=== PATIENT | male | born 1945 | race Caucasian/White ===

== ENCOUNTER 2016-07-14 12:14 | Emergency (ER) | payer MEDICARE | END 2016-07-14 13:03 | disposition home or self-care (01) | LOC: ED 12:14 | DX: L03.113 Cellulitis of right upper limb (principal) ==

== ENCOUNTER 2016-07-23 13:40 | Emergency (ER) | payer MEDICARE | END 2016-07-23 15:56 | disposition home or self-care (01) | LOC: ED 13:40 → SUPCPDRO 13:40 → ED 15:56 | DX: S61.401D Unspecified open wound of right hand, subsequent encounter (principal); W55.03XD Scratched by cat, subsequent encounter; I10 Essential (primary) hypertension; E66.9 Obesity, unspecified; J45.909 Unspecified asthma, uncomplicated; J44.9 Chronic obstructive pulmonary disease, unspecified; G47.30 Sleep apnea, unspecified; F32.9 Major depressive disorder, single episode, unspecified; Z87.891 Personal history of nicotine dependence; Z79.899 Other long term (current) drug therapy; Z88.0 Allergy status to penicillin; Z88.2 Allergy status to sulfonamides ==

== ENCOUNTER 2016-08-17 09:10 | Day surgery (SDC) | payer MEDICARE ==
[2016-08-17] MEDS ORDERED: LACTATED RINGERS 1,000 ML ONE (09:25)
[2016-08-17] MEDS ORDERED: IV START KIT ONE (09:26)
[2016-08-17] MEDS ORDERED: CLINDAMYCIN 600 MG PREMIX 50 ML IV PRN (09:30)
[2016-08-17] MEDS ORDERED: CLINDAMYCIN 600 MG PREMIX 50 ML IV ONE (09:47)
[2016-08-17] MEDS ORDERED: LIDOCAINE 1% (PRES FREE) 5 ML VIAL ONE (10:05)
[2016-08-17] MEDS ORDERED: MIDAZOLAM HCL 5 MG/5 ML VIAL ONE (10:29)
[2016-08-17] MEDS ORDERED: METOPROLOL TARTRATE 1 MG/ML 5ML VIAL ONE (10:48)
[2016-08-17] MEDS ORDERED: METOCLOPRAMIDE HCL 5 MG/ML 2ML VIAL ONE (10:48)
[2016-08-17] MEDS ORDERED: HYDRALAZINE HCL 20 MG/1 ML VIAL ONE (11:01)
[2016-08-17] MEDS ORDERED: BUPIVACAINE 0.5% (PRES FREE) 30 ML VIAL ONE (11:12)
[2016-08-17] MEDS ORDERED: OXYCODONE HCL 5 MG TABLET PO PRN (11:26)
[2016-08-17] MEDS ORDERED: ONDANSETRON 4 MG/2ML 2 ML VIAL IV PRN (11:26)
[2016-08-17] MEDS ORDERED: MORPHINE SULFATE 2 MG/ML SYRINGE IV PRN (11:26)
[2016-08-17] MEDS ORDERED: ACETAMINOPHEN 325 MG TABLET PO PRN (11:26)
--- NOTE | 2016-08-17 18:27 | OP ---
SHERIDAN RICHARD [id number] DATE OF OPERATION: August 17, 2016 PREOPERATIVE DIAGNOSIS: Mass dorsal right hand. POSTOPERATIVE DIAGNOSIS: Mass dorsal right hand. PROCEDURE: EXCISION OF MASS DORSAL RIGHT HAND. SURGEON: Harry Bautista M.D. ANESTHESIA: Fannett block by Maryann Preciado C.R.N.A. INDICATIONS: This is a 71-year-old male who has fairly fast growing mass on the dorsum of his right hand. He previously was scratched by a cat. This may be a pyogenic granuloma versus an aggressive skin cancer. DESCRIPTION: With informed consent he was taken to the operating room where he was laid supine on the operating room table. A Fannett block was placed by anesthesia. The arm and right hand were prepped and draped in a sterile fashion. An elliptical incision was made in a transverse fashion that would parallel the creases in his wrist. This extended on to the area of the skin overlying the metacarpal of the thumb. I dissected down to the subcutaneous fat. This lesion did not extend into the subcutaneous fat. I excised it at the level of the subcutaneous fat. It was labeled with a short stitch on the radial aspect, a long stitch on the ulnar aspect and a double stitch is distal. This was handed off to pathology. The wound was irrigated. We raised flaps in both directions. In doing that, we were then able to reapproximate the skin in a transverse fashion with interrupted and simple #3-0 and #4-0 nylon sutures. I then injected some 0.5% plain Marcaine. We let the tourniquet down. We did have a little bit of oozing from the ulnar aspect of the incision. I did remove one stitch, cauterized the subcutaneous tissues and reapproximated that area with #3-0 nylon sutures. Sterile dressing was applied. Xeroform and bulky dressings were placed. He tolerated the procedure and was taken to the recovery room in stable condition. Note was made that needle, instrument and lap counts were reported as correct at time of closure. Cc: Jonatan Mancilla
--- NOTE | 2016-08-20 12:30 | SURGPATH ---
[facility] [address] [place] [id number] Patient Name: STIVEN RICHARD MR#: [id number] : 1945 Gender: M Specimen #: [id number] Collected: 08/17/2016 Received: 08/19/2016 Reported: 08/20/2016 Submitting Phys: LEANN ALEXIS Copy To Phys: KEENA AMES [facility] Clinical History / Pre-Operative Diagnosis: Right hand mass Specimen Source / Surgical Procedure Performed: Right dorsal hand mass (short stitch-radial, long stitch-ulnar, Double stitch-distal) Interpretation: SKIN, RIGHT HAND MASS, EXCISION: - WELL-DIFFERENTIATED SQUAMOUS CELL CARCINOMA, MARGINS UNINVOLVED Electronically Signed Out Stiven Pang M.D. Gross Description: The specimen is received in a formalin filled container labeled with the patient's name and "right hand mass". A horizontally oriented wide excision of moran skin and subcutaneous tissue has a double stitch at one edge identified as distal, a short stitch at one end and an applied as radial and a long stitch at the opposite end identified as ulnar. The excision is 3.8 cm from radial to ulnar, 2.6 cm from proximal to distal and up to 0.4 cm in thickness. On the skin surface is a 3.3 x 2.2 x 0.8 cm raised, centrally ulcerated, firm pale pink-seaman lesion. The surgical margins are inked blue and the distal edge is overlain in black ink. The specimen is multiply cross sectioned perpendicular to the radial/ulnar axis and entirely submitted sequentially as two sections each in cassettes A-C, one section in cassette D and two sections each in cassettes E and F from radial to ulnar respectively. Jonatan Lees Microscopic Description: Sections of the entirely submitted specimen reveal a well differentiated squamous cell carcinoma that invades deep into the dermis and extends immediately adjacent to the interface between the deep dermis and subcutaneous fat. The carcinoma does not involve the examined surgical margins. [id number] [id number]
== END 2016-08-17 19:25 | disposition home or self-care (01) ==
LOC: SDC 09:10
PROVIDERS: ATTEND Surgery
PROC: 0HBFXZZ Excision of Right Hand Skin, External Approach (ICD-10-PCS; principal; 2016-08-17)
DX: C44.622 Squamous cell carcinoma of skin of right upper limb, including shoulder (principal); G47.33 Obstructive sleep apnea (adult) (pediatric); I10 Essential (primary) hypertension; J44.9 Chronic obstructive pulmonary disease, unspecified; J45.909 Unspecified asthma, uncomplicated; I09.9 Rheumatic heart disease, unspecified; Z88.8 Allergy status to other drugs, medicaments and biological substances; Z88.2 Allergy status to sulfonamides; Z79.82 Long term (current) use of aspirin; Z88.0 Allergy status to penicillin; Z79.899 Other long term (current) drug therapy; Z87.891 Personal history of nicotine dependence; E66.01 Morbid (severe) obesity due to excess calories; Z68.42 Body mass index [BMI] 45.0-49.9, adult
CPT/HCPCS: 14040; J0360; J2765; J2250; J7120